=== PATIENT | male | born 2000 | race Asian ===

== ENCOUNTER 2022-11-09 15:47 | Outpatient (CLI) | payer OTHER, SELFPAY ==
[2022-11-09 23:52] LABS: Chlamydia DNA Amplified* NOT DETECTED (No Detected); GC DNA Amplified* NOT DETECTED (No Detected)
== END 2022-11-09 15:48 | disposition home or self-care (01) ==
PROVIDERS: Visit Provider Nurse Practitioner Family
DX: Z72.51 High risk heterosexual behavior (principal)
CPT/HCPCS: 86592; 86703; 87491; 87591